=== PATIENT | male | born 1955 | race Asian ===

== ENCOUNTER → 2025-02-12 06:52 | Outpatient (REF) | payer OTHER, SELFPAY ==
[2025-02-12] MEDS: LEXISCAN 0.4 MG IV (08:29)
== END ==
LOC: RCS 06:52
PROVIDERS: ATTENDING PHYSICIAN Internal Medicine Cardiovascular Disease; FAMILY PHYSICIAN Internal Medicine Infectious Disease
DX: I25.10 Atherosclerotic heart disease of native coronary artery without angina pectoris (principal); I10 Essential (primary) hypertension; E78.2 Mixed hyperlipidemia
CPT/HCPCS: 78452; 93017; A9500; J2785